=== PATIENT | female | born 1930 | race African-American/Black ===

== ENCOUNTER → 2017-01-25 | Outpatient (CLI) | payer OTHER ==
[~2017-01-25] MED LIST: ACTOS 30 MG TAB30 MG; ALBUTEROL INH; AMARYL4 MG PO; ASPIRIN325 PO; BENADRYL ALLERG25 MG PO; CAPOTEN; CAPOTEN PO; FENTANYL PA25 MCG/HR; FLONASE; FOSAMAX 70 MG T70 MG; GLUCOPHAGE850 MG PO; IBUPROFEN 800800 M1; IBUPROFEN 800800 M1 PO; KLOR-CON 10 ER10 MEQ PO; LOPRESSOR100 MG PO; MAXZIDE 75-501 EACH PO; NORVASC 5 MG TAB5 MG PO; OXYCODONE HCL5 M1; PREDNISONE 10 M10 M1 PO; SIMVASTATIN40 MG; SIMVASTATIN40 MG PO; TOPROL XL50 MG; TOPROL XL50 MG PO; XYZAL5 MG PO; ZETIA10 MG; ZETIA10 MG PO; ZOLPIDEM TART12.5 M1 PO
== END ==
LOC: RAD 03:24
DX: Z12.31 Encounter for screening mammogram for malignant neoplasm of breast (principal)

== ENCOUNTER 2017-09-20 21:48 | Emergency (ER) | payer OTHER ==
[~2017-09-20] VITALS: Ht 154.9 cm; Wt 78.9 kg
[2017-09-20] MEDS ORDERED: ASPIR 8181 MG PO (22:03)
[2017-09-20] MEDS ORDERED: JANUVIA100 MG PO (22:04)
[2017-09-20] MEDS ORDERED: IRON325 PO (22:06)
[2017-09-20] MEDS ORDERED: TOPROL XL25 MG PO (22:06)
[2017-09-20] MEDS ORDERED: ZETIA10 MG PO (22:11)
[2017-09-20] MEDS ORDERED: PRAVACHOL40 MG PO (22:12)
[2017-09-20 22:59] VITALS: BP 179/91
== END 2017-09-20 23:00 | disposition home or self-care (01) ==
LOC: ER 21:48
DX: S61.215A Laceration without foreign body of left ring finger without damage to nail, initial encounter (principal); I10 Essential (primary) hypertension; E11.9 Type 2 diabetes mellitus without complications; M19.90 Unspecified osteoarthritis, unspecified site; Z88.0 Allergy status to penicillin; Z88.2 Allergy status to sulfonamides; W26.9XXA Contact with unspecified sharp object(s), initial encounter; Y93.89 Activity, other specified; Y92.89 Other specified places as the place of occurrence of the external cause; Y99.8 Other external cause status

== ENCOUNTER → 2018-01-26 | Outpatient (CLI) | payer OTHER ==
[~2018-01-26] MED LIST changes: +ASPIR 8181 MG PO; +IRON325 PO; +JANUVIA100 MG PO; +PRAVACHOL40 MG PO; +TOPROL XL25 MG PO
== END ==
LOC: RAD 01:14
DX: Z12.31 Encounter for screening mammogram for malignant neoplasm of breast (principal)

== ENCOUNTER → 2019-01-30 | Outpatient (CLI) | payer OTHER | LOC: RAD 09:39 | DX: Z12.31 Encounter for screening mammogram for malignant neoplasm of breast (principal) ==

== ENCOUNTER → 2020-02-13 | Outpatient (CLI) | payer OTHER | LOC: BC 10:52 | PROVIDERS: ATTEND Internal Medicine | DX: Z12.31 Encounter for screening mammogram for malignant neoplasm of breast (principal) ==